=== PATIENT | male | born 1990 | race African-American/Black ===

== ENCOUNTER 2021-08-09 18:43 | Emergency (ER) | payer OTHER ==
[~2021-08-09] VITALS: Ht 170.2 cm; Wt 63.5 kg
[2021-08-09 19:06] VITALS: BP 121/81
[2021-08-09] MEDS ORDERED: DIPH25TA27 PO (19:32)
--- NOTE | 2021-08-09 19:52 | NUR ---
CALLED SECURITY TO DISCHARGE PT. PT REFUSING TO LEAVE.
== END 2021-08-09 19:54 | disposition home or self-care (01) ==
LOC: ER 18:45
DX: L29.9 Pruritus, unspecified (principal); Z88.6 Allergy status to analgesic agent